=== PATIENT | female | born 1945 | race Two or more races ===

== ENCOUNTER 2019-07-12 13:09 | Outpatient (CLI) | payer OTHER, BC ==
[2019-07-12] MEDS ORDERED: BARIUM SULFATE 135 ML SUSP.RECON (E-Z-HD) PO ONE (13:39)
== END 2019-07-12 17:54 | disposition home or self-care (01) ==
LOC: SRD 13:09
PROVIDERS: ATTEND Otolaryngology
DX: R13.10 Dysphagia, unspecified (principal)
CPT/HCPCS: 74230; 92611-GN